=== PATIENT | male | born 1960 | race Caucasian/White ===

== ENCOUNTER 2016-11-12 19:55 | Inpatient (IN) | payer MEDICAID ==
[~2016-11-12] VITALS: Ht 149.9 cm; Wt 58.5 kg
[2016-11-12 20:19] VITALS: BP 103/62; PULSE 116; RESP 14; TEMP 97.6; O2SAT 99
[2016-11-12] MEDS ORDERED: AMPICILLIN SODIUM/SULBACTAM NA 3 GM in NS 100 ML IV ONE (21:45)
[2016-11-12] MEDS ORDERED: SULFAMETHOXAZOLE /TRIMETHOPRIM 20 ML in D5W 500 ML IV SCH (22:00)
[2016-11-12 22:07] LABS: BASOPHILS # (AUTO) 0.1 K/uL (0.0-0.2); EOSINOPHILS % (AUTO) 0.2 % (0.0-4.0); HEMATOCRIT 34.6 % (36-54); HEMOGLOBIN 11.8 g/dL (14.0-18.0); LYMPHOCYTES # (AUTO) 1.2 K/uL (1.0-5.5); LYMPHOCYTES % (AUTO) 10.3 % (20.5-51.5); MEAN CORPUSCULAR HEMOGLOBIN 31 pg (27-31); MEAN CORPUSCULAR HGB CONC 34 % (32-36); MEAN CORPUSCULAR VOLUME 91 fL (79.0-98.0); MONOCYTES # (AUTO) 0.7 K/uL (0.0-1.0); MONOCYTES % (AUTO) 6.4 % (1.7-9.3); NEUTROPHILS # (AUTO) 9.7 K/uL (1.8-7.7); NEUTROPHILS % (AUTO) 82.1 % (40.0-70.0); PLATELET COUNT (AUTO) 123 K/uL (130-430); RED BLOOD CELL COUNT(AUTO) 3.81 MIL/uL (4.2-6.2); RED CELL DISTRIBUTION WIDTH 14.2 % (9.0-15.0); WHITE BLOOD COUNT (AUTO) 11.7 K/uL (4.8-10.8)
[2016-11-12] MEDS ORDERED: AMPICILLIN SODIUM/SULBACTAM NA 3 GM VIAL ONE (22:09)
[2016-11-12 22:32] VITALS: BP 117/78; PULSE 88; RESP 20; TEMP 97.7; O2SAT 98
[2016-11-12 22:33] LABS: CALCIUM 9.1 mg/dL (8.4-11.0); CREATININE 1.43 mg/dL (0.55-1.30); POTASSIUM 3.6 mmol/L (3.5-5.1)
[2016-11-12] MEDS ORDERED: LEVO112T5 GT (22:37)
[2016-11-12] MEDS ORDERED: BENZ0.5T3 GT (22:38)
[2016-11-12 22:39] LABS: TOTAL BILIRUBIN 0.3 mg/dL (0.0-1.0); TOTAL PROTEIN, SERUM 8.3 g/dL (6.4-8.3)
[2016-11-12] MEDS ORDERED: CALC500T51 GT (22:39)
[2016-11-12] MEDS ORDERED: DOXE25CA3 GT (22:41)
[2016-11-12] MEDS ORDERED: FLUO10CA65 GT (22:42)
[2016-11-12] MEDS ORDERED: ESOM40CA GT (22:43)
[2016-11-12] MEDS ORDERED: TOP25 GT (22:44)
[2016-11-12] MEDS ORDERED: RISP2TAB5 GT (22:45)
[2016-11-12] MEDS ORDERED: TRAZ150T77 GT (22:46)
[2016-11-12] MEDS ORDERED: CHOL200035 GT (22:46)
[2016-11-12] MEDS ORDERED: ASCO500S2 GT (22:49)
[2016-11-12] MEDS ORDERED: POLY17PO20 GT (22:50)
[2016-11-12] MEDS ORDERED: ALBUTEROL SULFATE 0.083% 2.5 MG/3 ML VIAL.NEB INH PRN (23:15)
[2016-11-12 23:28] VITALS: BP 108/74; PULSE 101
[2016-11-12] MEDS ORDERED: DOXYCYCLINE HYCLATE 100 MG CAPSULE GT ONE (23:45)
[2016-11-12] MEDS ORDERED: BACITRACIN/POLYMYXIN B SULFATE 30 GM TOPICAL OINT. TP ONE (23:45)
[2016-11-13] VITALS: BP 92/55; PULSE 107; RESP 18; TEMP 97; O2SAT 96
[2016-11-13] MEDS ORDERED: AMPICILLIN SODIUM/SULBACTAM NA 1.5 GM VIAL ONE (00:31)
[2016-11-13] MEDS: LR 1,000 ML IV SCH ×4 (00:57→23:52)
[2016-11-13 04:00] VITALS: BP 107/55; PULSE 105; RESP 20; TEMP 98.5; O2SAT 97
[2016-11-13] MEDS: AMPICILLIN SODIUM/SULBACTAM NA 1.5 GM in NS 50 ML IV SCH ×4 (04:22→22:29)
[2016-11-13 07:51] LABS: BASOPHILS % (AUTO) 0.2 % (0.0-2.0); EOSINOPHILS % (AUTO) 0.2 % (0.0-4.0); HEMOGLOBIN 10.5 g/dL (14.0-18.0); LYMPHOCYTES # (AUTO) 0.9 K/uL (1.0-5.5); LYMPHOCYTES % (AUTO) 9.3 % (20.5-51.5); MEAN CORPUSCULAR HEMOGLOBIN 31 pg (27-31); MEAN CORPUSCULAR HGB CONC 34 % (32-36); MEAN CORPUSCULAR VOLUME 92 fL (79.0-98.0); MONOCYTES # (AUTO) 0.6 K/uL (0.0-1.0); MONOCYTES % (AUTO) 6.4 % (1.7-9.3); NEUTROPHILS # (AUTO) 8.2 K/uL (1.8-7.7); NEUTROPHILS % (AUTO) 83.9 % (40.0-70.0); PLATELET COUNT (AUTO) 113 K/uL (130-430); RED BLOOD CELL COUNT(AUTO) 3.37 MIL/uL (4.2-6.2); RED CELL DISTRIBUTION WIDTH 14.3 % (9.0-15.0); WHITE BLOOD COUNT (AUTO) 9.7 K/uL (4.8-10.8)
[2016-11-13 08:00] VITALS: BP 100/70; PULSE 94; RESP 14; TEMP 98.3; O2SAT 96
[2016-11-13 08:23] LABS: ALBUMIN 2.6 g/dL (3.4-4.8); CALCIUM 9.1 mg/dL (8.4-11.0); CREATININE 1.15 mg/dL (0.55-1.30); FREE T4 (FREE THYROXINE) 0.6 ng/dL (0.6-1.6); PHOSPHORUS 2.3 mg/dL (2.7-4.5); POTASSIUM 3.6 mmol/L (3.5-5.1); THYROID STIMULATING HORMONE 11.46 uIu/mL (0.34-4.82); TOTAL BILIRUBIN 0.3 mg/dL (0.0-1.0); TOTAL PROTEIN, SERUM 7.7 g/dL (6.4-8.3)
[2016-11-13 08:38] LABS: IRON (SERUM) 17 mcg/dL (59-158); TOTAL IRON BIND. CAPACITY 184 ug/dL (250-450)
[2016-11-13] MEDS: DOXYCYCLINE HYCLATE 100 MG CAPSULE GT SCH ×2 (09:07→22:33)
[2016-11-13] MEDS: BACITRACIN/POLYMYXIN B SULFATE 30 GM TOPICAL OINT. TP SCH ×2 (09:07→22:34)
[2016-11-13 12:00] VITALS: BP 105/70; PULSE 96; RESP 18; TEMP 97.8; O2SAT 99
[2016-11-13] MEDS ORDERED: LEVOTHYROXINE SODIUM 0.112 MG TABLET GT SCH (13:30)
[2016-11-13] MEDS ORDERED: LEVOTHYROXINE SODIUM 0.05 MG TABLET PO ONE (13:30)
[2016-11-13] MEDS ORDERED: FLUoxetine HCL 10 MG CAPSULE (PROzac) GT ONE (14:00)
[2016-11-13 14:26] VITALS: Ht 149.9 cm; Wt 58.5 kg
[2016-11-13] MEDS: DOXEPINE (SINEQUAN) 25 MG CAP GT SCH ×2 (15:04→21:00)
[2016-11-13 16:00] VITALS: BP 120/76; PULSE 90; RESP 16; TEMP 97.5; O2SAT 94
[2016-11-13 17:29] LABS: BILIRUBIN,URINE NEGATIVE (NEGATIVE); BLOOD, URINE 3+ (NEGATIVE); CLARITY/URINE SL HAZY (CLEAR); COLOR,URINE YELLOW (YELLOW); GLUCOSE,URINE NEGATIVE (NEGATIVE); KETONES,URINE NEGATIVE (NEGATIVE); LEUKOCYTE ESTERASE ,URINE 2+ (NEGATIVE); NITRITE, URINE NEGATIVE (NEGATIVE); PROTEIN URINE 2+ (NEGATIVE); UROBILINOGEN,URINE 0.2 (0.2-1.0)
[2016-11-13 17:59] LABS: BACTERIA,URINE MANY /HPF (None Seen); RBC,URINE 20-50 /HPF (0-3); WBC,URINE 50-80 /HPF (0-3)
[2016-11-13 18:01] LABS: COARSE GRANULAR CASTS,URINE 0-10 /LPF (None Seen); MUCUS,URINE None Seen /LPF (None Seen); URINE AMORPHOUS PHOSPHATES 2+ /HPF (None Seen)
[2016-11-13] MEDS: ASCORBIC ACID 500 MG TABLET GT SCH (21:00)
[2016-11-13] MEDS: traZODone HCL 50 MG TABLET (DESYREL) GT SCH (21:00)
[2016-11-13] MEDS: risperiDONE 1 MG TABLET (RisperDAL) GT SCH (22:32)
[2016-11-13] MEDS: CALCIUM 500 MG/TAB GT SCH (22:32)
[2016-11-13] MEDS: CHOLECALCIFEROL (VITAMIN D3) 2,000 UNIT TABLET GT SCH (22:32)
[2016-11-13] MEDS: TOPIRAMATE 25 MG TABLET(TOPAMAX) GT SCH (22:33)
[2016-11-13] MEDS: LACTOBACILLUS RHAMNOSUS GG 1 CAP CAPSULE PO SCH (22:33)
[2016-11-14 01:02] VITALS: BP 99/72; PULSE 82; RESP 18; TEMP 97.9; O2SAT 97
[2016-11-14 04:00] VITALS: BP 107/68; PULSE 80; RESP 18; TEMP 97; O2SAT 98
[2016-11-14] MEDS: AMPICILLIN SODIUM/SULBACTAM NA 1.5 GM in NS 50 ML IV SCH ×2 (04:17→11:44)
[2016-11-14] MEDS ORDERED: LEVOTHYROXINE SODIUM 0.112 MG TABLET GT SCH (07:00)
[2016-11-14] MEDS ORDERED: LEVOTHYROXINE SODIUM 0.05 MG TABLET PO SCH (07:00)
[2016-11-14 07:23] LABS: BASOPHILS % (AUTO) 0.6 % (0.0-2.0); EOSINOPHILS # (AUTO) 0.2 K/uL (0.0-0.4); HEMATOCRIT 29.4 % (36-54); HEMOGLOBIN 9.9 g/dL (14.0-18.0); LYMPHOCYTES % (AUTO) 12.5 % (20.5-51.5); MEAN CORPUSCULAR HEMOGLOBIN 31 pg (27-31); MEAN CORPUSCULAR HGB CONC 34 % (32-36); MEAN CORPUSCULAR VOLUME 93 fL (79.0-98.0); MONOCYTES # (AUTO) 0.7 K/uL (0.0-1.0); MONOCYTES % (AUTO) 8.8 % (1.7-9.3); NEUTROPHILS # (AUTO) 5.8 K/uL (1.8-7.7); NEUTROPHILS % (AUTO) 76.1 % (40.0-70.0); PLATELET COUNT (AUTO) 112 K/uL (130-430); RED BLOOD CELL COUNT(AUTO) 3.16 MIL/uL (4.2-6.2); RED CELL DISTRIBUTION WIDTH 14.5 % (9.0-15.0); WHITE BLOOD COUNT (AUTO) 7.7 K/uL (4.8-10.8)
[2016-11-14 07:47] LABS: CALCIUM 8.9 mg/dL (8.4-11.0); CREATININE 1.14 mg/dL (0.55-1.30); POTASSIUM 3.5 mmol/L (3.5-5.1)
[2016-11-14 08:00] VITALS: BP 109/71; PULSE 76; RESP 14; TEMP 97.2; O2SAT 100
[2016-11-14 08:07] LABS: HEMOGLOBIN A1C 5.4 % (4.8-5.6)
[2016-11-14] MEDS: BENZTROPINE MESYLATE 1 MG TABLET GT SCH (08:28)
[2016-11-14] MEDS: LACTOBACILLUS RHAMNOSUS GG 1 CAP CAPSULE PO SCH ×2 (08:28→21:01)
[2016-11-14] MEDS: BACITRACIN/POLYMYXIN B SULFATE 30 GM TOPICAL OINT. TP SCH ×2 (08:28→21:06)
[2016-11-14] MEDS: risperiDONE 1 MG TABLET (RisperDAL) GT SCH ×2 (08:29→21:01)
[2016-11-14] MEDS: CHOLECALCIFEROL (VITAMIN D3) 2,000 UNIT TABLET GT SCH ×2 (08:29→21:01)
[2016-11-14] MEDS: PANTOPRAZOLE GRANULES PACKET 40 MG GT SCH (08:29)
[2016-11-14] MEDS: TOPIRAMATE 25 MG TABLET(TOPAMAX) GT SCH ×2 (08:29→21:01)
[2016-11-14] MEDS: CALCIUM 500 MG/TAB GT SCH ×2 (08:30→21:01)
[2016-11-14] MEDS: POLYETHYLENE GLYCOL 3350, 17 GM/ POWD.PACK GT SCH (08:31)
[2016-11-14] MEDS: DOXEPINE (SINEQUAN) 25 MG CAP GT SCH ×3 (08:35→21:00)
[2016-11-14] MEDS: FLUoxetine HCL 10 MG CAPSULE (PROzac) GT SCH (08:36)
[2016-11-14] MEDS: ASCORBIC ACID 500 MG TABLET GT SCH ×2 (08:36→21:00)
[2016-11-14] MEDS: DOXYCYCLINE HYCLATE 100 MG CAPSULE GT SCH ×2 (10:28→21:00)
[2016-11-14] MEDS: LORazepam 2 MG/ML VIAL IM PRN (11:06)
[2016-11-14 12:00] VITALS: BP 120/77; PULSE 65; RESP 20; TEMP 96.2; O2SAT 100
[2016-11-14 16:00] VITALS: BP 117/69; PULSE 69; RESP 21; TEMP 96.2; O2SAT 97
[2016-11-14] MEDS: PIPERACILLIN/TAZO 3.375/DEX-IS 50 ML IV SCH ×2 (17:44→23:28)
[2016-11-14] MEDS: LR 1,000 ML IV SCH (19:10)
[2016-11-14 20:40] VITALS: BP 102/61; PULSE 61; RESP 18; TEMP 97; O2SAT 95
[2016-11-14] MEDS: traZODone HCL 50 MG TABLET (DESYREL) GT SCH (21:01)
[2016-11-15] VITALS: BP 130/71; PULSE 73; RESP 18; TEMP 97.6; O2SAT 97
[2016-11-15 04:00] VITALS: BP 124/58; PULSE 69; RESP 18; TEMP 98.6; O2SAT 97
[2016-11-15] MEDS: PIPERACILLIN/TAZO 3.375/DEX-IS 50 ML IV SCH ×3 (05:02→17:04)
[2016-11-15] MEDS: LEVOTHYROXINE SODIUM 0.125 MG TABLET PO SCH ×2 (06:13→06:19)
[2016-11-15 08:00] VITALS: BP 125/68; PULSE 59; RESP 18; TEMP 97.2; O2SAT 97
[2016-11-15] MEDS: ASCORBIC ACID 500 MG TABLET GT SCH (08:51)
[2016-11-15] MEDS: LACTOBACILLUS RHAMNOSUS GG 1 CAP CAPSULE PO SCH (08:52)
[2016-11-15] MEDS: BENZTROPINE MESYLATE 1 MG TABLET GT SCH (08:52)
[2016-11-15] MEDS: FLUoxetine HCL 10 MG CAPSULE (PROzac) GT SCH (08:52)
[2016-11-15] MEDS: CALCIUM 500 MG/TAB GT SCH (08:52)
[2016-11-15] MEDS: DOXYCYCLINE HYCLATE 100 MG CAPSULE GT SCH (08:52)
[2016-11-15] MEDS: DOXEPINE (SINEQUAN) 25 MG CAP GT SCH ×2 (08:53→14:54)
[2016-11-15] MEDS: TOPIRAMATE 25 MG TABLET(TOPAMAX) GT SCH (08:53)
[2016-11-15] MEDS: PANTOPRAZOLE GRANULES PACKET 40 MG GT SCH (08:53)
[2016-11-15] MEDS: CHOLECALCIFEROL (VITAMIN D3) 2,000 UNIT TABLET GT SCH (08:53)
[2016-11-15] MEDS: POLYETHYLENE GLYCOL 3350, 17 GM/ POWD.PACK GT SCH (08:54)
[2016-11-15] MEDS: risperiDONE 1 MG TABLET (RisperDAL) GT SCH (08:54)
[2016-11-15] MEDS: BACITRACIN/POLYMYXIN B SULFATE 30 GM TOPICAL OINT. TP SCH (08:55)
[2016-11-15 12:19] VITALS: BP 125/74; PULSE 73; RESP 19; TEMP 97; O2SAT 93
[2016-11-15] MEDS: LR 1,000 ML IV SCH ×2 (14:53→14:54)
[2016-11-15] MEDS: LORazepam 2 MG/ML VIAL IM PRN (15:22)
[2016-11-15 16:26] VITALS: BP 120/85; PULSE 78; RESP 17; TEMP 98; O2SAT 98
[2016-11-15 16:44] VITALS: BP 122/87; PULSE 75; RESP 18; TEMP 98.2; O2SAT 98
[2016-11-18 15:27] LABS: FOLATE (FOLIC ACID) 16.8
== END 2016-11-15 18:55 | DRG 383 ==
LOC: SED 19:55 → SMU 22:24
PROVIDERS: ADMIT Internal Medicine; ATTEND Internal Medicine
DX: L03.113 Cellulitis of right upper limb (principal); N17.9 Acute kidney failure, unspecified; R13.10 Dysphagia, unspecified; E44.1 Mild protein-calorie malnutrition; Z93.1 Gastrostomy status; E86.0 Dehydration; E03.9 Hypothyroidism, unspecified; H54.0 Blindness, both eyes; F25.9 Schizoaffective disorder, unspecified; L30.9 Dermatitis, unspecified; D64.9 Anemia, unspecified; Z68.26 Body mass index [BMI] 26.0-26.9, adult; J45.909 Unspecified asthma, uncomplicated
CPT/HCPCS: 36415; 71010; 80048; 80053; 80061; 81000-TC; 82607; 82746; 83036; 83540-TC; 83550-TC; 83605; 83690-TC; 83735-TC; 84100-TC; 84439; 84443-TC; 85025; 87040-TC; 87086; 87186-TC; 94640; 96365; 97110-GP; 97530-GP; 99285; J0295; J2060; J2543; J7120